=== PATIENT | male | born 2000 | race Caucasian/White ===

== ENCOUNTER → 2023-08-10 | Outpatient (CLI) | payer OTHER ==
--- NOTE | 2023-08-10 10:16 | XR ---
EXAMINATION TYPE: XR shoulder complete 3 views RT, XR thoracic spine 4 views complete DATE OF EXAM: 08/10/2023 Comparison: None Clinical History: 23-year-old male S29.012A, S46.911A Findings: Right shoulder: AC joint is intact and congruent. Subacromial space is preserved. No acute fracture, subluxation, dis location seen. Visualized right hemithorax is clear. Thoracic spine: 12 rib thoracic vertebral bodies. All pedicles are visualized. Vertebral body heights are preserved a nd alignment is maintained. Impression: 1. Right shoulder: No acute osseous abnormality seen. 2. Thoracic spine: No vertebral compression collapse or malalignment.
== END | disposition home or self-care (01) ==
LOC: RADXRMAIN 09:29
PROVIDERS: ATTEND Emergency Medicine
DX: S29.012A Strain of muscle and tendon of back wall of thorax, initial encounter (principal); S46.911A Strain of unspecified muscle, fascia and tendon at shoulder and upper arm level, right arm, initial encounter
CPT/HCPCS: 72072